=== PATIENT | male | born 1990 | race Caucasian/White ===

== ENCOUNTER 2018-10-17 13:48 | Emergency (ER) | payer BC, OTHER ==
[~2018-10-17] VITALS: Ht 177.8 cm; Wt 112.0 kg
[2018-10-17 13:58] VITALS: Ht 177.8 cm; Wt 112.0 kg
[2018-10-17] MEDS ORDERED: IBUP-1542 PO (16:38)
--- NOTE | 2018-10-17 16:49 | ERD ---
ER Documentation Chief Complaint Chief Complaint pt bib self with c/o right shoulder pain s/p bench pressing at 12 today HPI This is a 28-year-old [id number] male presents to the ED complaining of right shoulder pain status post bench pressing 350 pounds yesterday while at the gym. Patient states he heard to clicking sounds on his right shoulder and is worried about a possible dislocation or fracture. [facility] [place] [facility] [place] here. He complains of pain mostly with abduction and internal rotation of his right shoulder. He denies any numbness, tingling or, focal weakness of his upper extremity. Denies any injuries. Denies any neck or back pain. ROS All systems reviewed and are negative except as per history of present illness. Medications Home Meds Active Scripts Ibuprofen* (Motrin*) 600 Mg Tab, 600 MG PO Q6H PRN for PAIN AND OR ELEVATED TEMP, #30 TAB Prov:EDWARD FULTON PA-C 10/17/18 Allergies Allergies: Coded Allergies: No Known Allergy (Unverified , 10/17/18) PMhx/Soc Medical and Surgical Hx: pt denies Medical Hx, pt denies Surgical Hx Hx Alcohol Use: Yes (social) Hx Substance Use: Yes (marijuana edibles tried last 09/26) Hx Tobacco Use: No Smoking Status: Never smoker Physical Exam Vitals Vital Signs Date Temp Pulse Resp B/P (MAP) Pulse Ox O2 O2 Flow FiO2 Time Delivery Rate 10/17/18 98.3 68 18 151/87 99 13:58 (108) Physical Exam Const: No acute distress. Right arm held in adduction Head: Atraumatic Eyes: Normal Conjunctiva ENT: Normal External Ears, Nose and Mouth. Neck: Full range of motion. No meningismus. Skin: No petechiae or rashes Back: No midline or flank tenderness Upper Extremity -right Skin: No laceration, or evidence of external trauma of the right shoulder. No tenting. Compartments: Soft Motor: + Pain with active abduction of the right shoulder and internal rotation of the right shoulder. No pain along the elbow or wrist. Sensation: + Radial, ulnar, medial nerves intact. Axillary nerve intact. Bones: Nontender humerus/elbow/forearm/wrist/hand Snuffbox: Nontender Joints: No effusion Pulses/Perfusion: 2+ radial, Capillary refill < 2 seconds Neur: Awake and alert Psych: Normal Mood and Affect Procedures/MDM EMERGENT LABS AND DIAGNOSTIC STUDIES Radiology Results as interpreted by Radiology: PROCEDURE: XR right shoulder. CLINICAL INDICATION: Pain TECHNIQUE: AP, Internal and external rotation views of the right shoulder were performed. COMPARISON: None. FINDINGS: There is normal osseous mineralization and alignment. No acute fracture or osseous lesion is identified. There are normal joints without evidence of arthritis or dislocation. The soft tissues are unremarkable. RPTAT: AA IMPRESSION: Unremarkable right shoulder. Nursing Notes Reviewed. EMERGENCY DEPARTMENT COURSE / MEDICAL DECISION MAKIN-year-old male presents with right shoulder pain status post bench pressing injury last night. Has no obvious deformity on physical exam. He is neurovascularly intact. X-ray as above does not show any acute dislocation or fracture of his shoulder. I discussed results with patient and told him that although x-ray is negative, I cannot rule out tendon injury. Differential diagnosis includes tendinitis, impingement syndrome and/or tendon rupture. I offered pain medication however patient deferred. She has no evidence of compartment syndrome, neurologic injury, vascular injury, open joint, open fracture, tendon laceration or foreign body. The can be followed with outpatient orthopedics for further management and possible MRI. Strict return precautions were discussed. Arm sling Assessment: Neurovascularly intact post splint placement with good fit. PRESCRIPTIONS: Ibuprofen SPECIALIST FOLLOW UP RECOMMENDED: Ortho Patient has been advised to follow up with primary care in 1-2 days. Blood Pressure Assessment: Patient's blood pressure was elevated (>120/80) but appears stable without evidence of hypertension emergency or urgency. The patient was counseled about the risks of hypertension and urged to pursue outpatient monitoring and therapy within a week with their primary care physician. Departure Diagnosis: Primary Impression: Shoulder injury Encounter type: initial encounter Laterality: right Qualified Codes: S49.91XA - Unspecified injury of right shoulder and upper arm, initial encounter Condition: Stable Patient Instructions: Shoulder Exercises: External Rotation, Tendonitis Referrals: [facility] 7 a.m.- 11 p.m. Every Day of the Week NO APPOINTMENT OR AUTHORIZATION NEEDED Additional Instructions: You must follow-up with your primary care provider for referral to an orthopedist as you might need an MRI for continued pain of the shoulder. X-ray shows no apparent fracture however as discussed, this does not rule out any tendon injuries. Take the ibuprofen as needed for any pain. Avoid any extensive use of the shoulder. Return here for any new or worsening symptoms. EDWARD FULTON PA-C October 17, 2018 16:49
[2018-10-17 17:05] VITALS: BP 140/91; PULSE 67; RESP 16
== END 2018-10-17 17:06 | disposition home or self-care (01) ==
LOC: FTE 13:48
DX: S49.91XA Unspecified injury of right shoulder and upper arm, initial encounter (principal); X50.1XXA Overexertion from prolonged static or awkward postures, initial encounter; Y92.89 Other specified places as the place of occurrence of the external cause